=== PATIENT | female | born 1995 | race Caucasian/White ===

== ENCOUNTER 2020-08-15 10:46 | Outpatient (CLI) | payer BC | END 2020-08-15 10:47 | disposition home or self-care (01) | LOC: TBSIIMAG 10:46 | PROVIDERS: ATTEND Orthopaedic Surgery Hand Surgery | DX: M93.1 Kienbock's disease of adults (principal); S66.812A Strain of other specified muscles, fascia and tendons at wrist and hand level, left hand, initial encounter; M18.12 Unilateral primary osteoarthritis of first carpometacarpal joint, left hand ==